=== PATIENT | female | born 2000 | race Caucasian/White ===

== ENCOUNTER 2024-12-20 11:37 | Emergency (ER) | payer OTHER ==
[~2024-12-20] VITALS: Ht 167.6 cm; Wt 56.6 kg
[2024-12-20 12:15] VITALS: TEMP 98.3
[2024-12-20 12:41] LABS: PLATELET COUNT (AUTO) 287 K/uL (150-450); RED BLOOD CELL COUNT(AUTO) 3.81 MIL/uL (4.00-5.20); RED CELL DISTRIBUTION WIDTH 17.4 % (11.5-14.5); WHITE BLOOD COUNT (AUTO) 15.7 K/uL (4.5-11.0)
[2024-12-20 12:51] LABS: CALCIUM, TOTAL 8.7 mg/dL (8.8-10.5); CREATININE 0.50 mg/dL (0.60-1.30); GLOMERULAR FILTR. RATE CALC > 60 mL/min (>60); GLUCOSE,RANDOM 65 mg/dL (70-110); SODIUM SERUM 136 mmol/L (136-145); UREA NITROGEN, BLOOD 7 mg/dL (7-18)
[2024-12-20 13:00] VITALS: BP 99/71; PULSE 82; RESP 15; O2SAT 99
== END 2024-12-20 14:22 ==
LOC: EMS 12:23
DX: O26.892 Other specified pregnancy related conditions, second trimester (principal); Z65.3 Problems related to other legal circumstances; Z3A.26 26 weeks gestation of pregnancy
CPT/HCPCS: 76805; 80048; 85025; 99284